=== PATIENT | male | born 1990 | race Caucasian/White ===

== ENCOUNTER 2017-09-05 04:22 | Emergency (ER) | payer SELFPAY ==
[~2017-09-05] VITALS: Ht 167.6 cm; Wt 77.0 kg
[2017-09-05 04:30] VITALS: BP 121/68
== END 2017-09-05 08:30 | disposition left against medical advice (07) ==
LOC: ER 04:22
DX: M79.642 Pain in left hand (principal); Z53.21 Procedure and treatment not carried out due to patient leaving prior to being seen by health care provider